=== PATIENT | male | born 1960 | race Caucasian/White ===

== ENCOUNTER 2020-05-02 13:40 | Outpatient (CLI) | payer BC, SELFPAY ==
--- NOTE | 2020-05-02 15:08 | ECG_ITS ---
Measurements Intervals [place] Rate: 66 P: 29 MT: 151 QRS: 24 QRSD: 89 T: 30 QT: 369 QTc: 387 Interpretive Statements SINUS RHYTHM BASELINE ARTIFACT- I, II, III, AVR, AVL, AVF NORMAL ECG Electronically Signed On 05-02-2020 16:33:16 CDT by Daren Amador D.O.
[2020-05-02 15:36] LABS: Basophils Absolute Auto 0.1 K/mm3 (0.0-0.1); Basophils Percent Auto 0.6 % (0.2-1.2); Eosinophils Absolute Auto 0.4 K/mm3 (0-0.3); Eosinophils Percent Auto 4.3 % (0-4.4); Hematocrit 46.9 % (42.0-52.0); Hemoglobin 15.4 g/dL (14.0-18.0); Immature Granulocyte Absolute 0.05 K/mm3 (0.00-0.031); Immature Granulocyte Percent A 0.5 % (0-0.5); Lymphocytes Absolute Auto 3.02 K/mm3 (0.9-3.2); Lymphocytes Percent Auto 30.5 % (18.3-44.2); Mean Corpuscular HGB Conc 32.8 g/dl (32-36); Mean Corpuscular Hemoglobin 30.9 pg (26-34); Mean Platelet Volume 9.8 fl (7.4-10.4); Monocytes Absolute Auto 0.9 K/mm3 (0.1-0.6); Monocytes Percent Auto 8.8 % (2.6-8.5); Neutrophils Absolute Auto 5.5 K/mm3 (1.3-6.7); Neutrophils Percent Auto 55.3 % (45.5-73.1); Platelet Count Result 214 k/mm3 (150-375); Red Blood Count 4.99 M/mm3 (4.6-6.20); Red Cell Distribution Width 13.9 % (11.5-14.5); White Blood Count 9.9 K/mm3 (4.5-10.0)
[2020-05-02 15:41] LABS: Add Urine Microscopic? NO; Appearance Urine Clear (Clear); Bilirubin Urine Negative (Negative); Blood Urine Negative (Negative); Color Urine Yellow (Yellow); Glucose Urine UA Negative (Negative); Ketones Urine Negative (Negative); Leukocyte Esterase Ur Negative LEU/UL (Negative); Mucus Urine Rare /lpf; Nitrate Urine Negative (Negative); Protein Urine Negative (Negative); Specific Grav Ur 1.015 (1.001-1.035); Urobilinogen Urine Negative mg/dL (<2.0); WBC Urine 0-3 /hpf
[2020-05-02 15:43] LABS: Albumin Level 4.1 g/dL (3.5-5.1); Anion Gap 6 mmol/L (8-16); Blood Urea Nitrogen 14 mg/dL (9-20); Calcium 9.1 mg/dL (8.4-10.2); Carbon Dioxide 31 mmol/L (22-30); Chloride 97 mmol/L (98-107); Estimated Glomerular Filt Rate > 60; Glucose 89 mg/dL (75-110); Potassium 4.5 mmol/L (3.4-5.0); Sodium 134 mmol/L (137-145)
[2020-05-02 15:44] LABS: Prothrombin Time 12.4 Seconds (11.1-14.7)
[2020-05-02 15:45] LABS: Partial Thromboplastin Time 26.9 SECONDS (22.3-36.8)
[2020-05-02 15:47] LABS: Urine Cotinine NEGATIVE
[2020-05-02 16:32] LABS: Hemoglobin A1C 5.7 % (<5.7)
== END 2020-05-02 13:41 | disposition home or self-care (01) ==
LOC: ANHSURGERY 13:42
PROVIDERS: PCP Internal Medicine; Visit Provider Orthopaedic Surgery
DX: Z01.818 Encounter for other preprocedural examination (principal); M17.11 Unilateral primary osteoarthritis, right knee
CPT/HCPCS: 80048; 80307; 81003; 82040; 83036; 85025; 85610; 85730; 87081; 93005

== ENCOUNTER 2020-05-18 00:46 | Outpatient (CLI) | payer BC, SELFPAY ==
[2020-05-18 18:37] LABS: SARS-CoV-2 RNA PCR Negative
== END 2020-05-18 00:47 | disposition home or self-care (01) ==
LOC: ANHCOVIDDT 00:46
PROVIDERS: PCP Internal Medicine; Visit Provider Orthopaedic Surgery
DX: Z01.812 Encounter for preprocedural laboratory examination (principal); Z20.828 Contact with and (suspected) exposure to other viral communicable diseases
CPT/HCPCS: 87635; C9803; U0003

== ENCOUNTER 2020-05-21 13:25 | Inpatient (IN) | payer BC, SELFPAY ==
[2020-05-02 14:13] VITALS: BP 131/86; PULSE 69; RESP 18; TEMP 36.8; O2SAT 97; BMI 37.3
[2020-05-21] VITALS (13 sets, daily range): BP systolic 119–151; BP diastolic 69–109; PULSE 68–94; RESP 12–20; TEMP 35.7–37.2; O2SAT 92–100
--- NOTE | ~2020-05-21 | XR_ITS ---
EXAMINATION: XR knee RT 2V DATE: 05/21/2020 12:56 CDT INDICATION: Right total knee arthroplasty TECHNIQUE: 2 views right knee FINDINGS: There is a right total knee arthroplasty in expected position. Subcutaneous gas with fluid and air in the joint and overlying skin yash are consistent with recent surgery. No evidence of p eriprosthetic fracture. IMPRESSION: 1. Recent right total knee arthroplasty. Reviewed, dictated and finalized at location A.
--- NOTE | 2020-05-21 07:24 | WPDHPUPDATE1 ---
History and Physical Update Update Date/Time: 05/21/20 07:24 History and Physical has been reviewed, including an updated exam of the patient. There are NO changes in the patient's condition. Risks, benefits, and alternatives have been discussed and questions answered. Patient agrees to proceed with procedure.
[2020-05-21] MEDS: ACETAMINOPHEN 500 MG TABLET 1000 MG PO (09:46)
--- NOTE | 2020-05-21 09:59 | P.PNAN_ITS ---
Anes - Initial Pre Proc Eval Procedure: Operation Date: 05/21/20 11:30 Proposed Procedures p Right Total Knee Arthroplasty - Ganesh Solis MD Date/Time: 05/21/20 09:59 Surgeon: Ganesh Solis MD Pre Op Diagnosis: Right Knee DJD Patient Data Age: 60 Gender: M Height: 5 ft 10.5 in Weight: 117.8 kg Last Vital Signs Temp 98.2 F 05/02/20 14:13 Pulse 69 05/02/20 14:13 Resp 18 05/02/20 14:13 BP 131/86 05/02/20 14:13 Pulse Ox 97 05/02/20 14:13 Allergies Allergy/AdvReac Type Severity Reaction Status Date / Time No Known Allergies Allergy Verified 05/21/20 09:31 Home Medications Medication Instructions Recorded Confirmed Type amlodipine 10 mg-benazepril 20 mg 1 cap PO DAILY 11/15/19 05/21/20 History capsule chlorhexidine gluconate 4 % 1 applic TOPICAL ONCE #237 ml 04/16/20 05/17/20 Rx topical liquid aspirin [Adult Low Dose Aspirin] 81 mg PO DAILY 05/02/20 05/21/20 History glucosamine-chondroitin 1 tablet PO DAILY 05/02/20 05/21/20 History naproxen sodium [Aleve] 440 mg PO BID 05/02/20 05/21/20 History omega 7-aom-gev-fish oil [Fish Oil] 1 cap PO DAILY 05/02/20 05/21/20 History Patient hx anesthesia problems: none Family hx anesthesia problems: none PMFSH Past Medical History Medical History (Updated 05/17/20 @ 15:50 by LAURA Murdock) Benign essential hypertension Degenerative joint disease of knee Erectile dysfunction Essential pulmonary hypertension On intermediate drug therapy YUSRA (obstructive sleep apnea) Other and unspecified hyperlipidemia Personal history of nicotine dependence Tricompartment degenerative joint disease of knee Social History Social History Smoking packs per day: 0.5 Smoking cigarettes per day: 10.0 Years smoked: 40 Smoking pack-years: 20.00 Smoking status: Former smoker (pt. stated he stopped smoking on 04/16/20) Tobacco type: cigarettes Second hand tobacco smoke exposure: No Smoking end date: 04/16/20 Additional smoking assessment comments: DENIES ANY FORM OF TOBACCO/NICOTINE USE Alcohol intake: current Drinks per week: 10 Alcohol use details: BEER Living arrangements: alone Spiritual care concerns: No Anes - Eval Final PreProcedure Day of Procedure 05/21/20 09:59 Patient weight: obese Heart: regular rate and rhythm Lungs: clear to auscultation Airway: Mallampati scale class III Neurological: alert and oriented Last oral intake: >/= 8 hours ASA classification: III Emergent: no Anesthetic plan: proceed Anesthesia type and monitoring: general LMA (may use ETT if needed) and standard monitoring Informed Consent: The patient's anesthetic plan and its attendant risks and benefits were discussed with the patient/family/POA. Questions were solicited and answers provided to the satisfaction of the patient/family/POA.
[2020-05-21] MEDS: KETOROLAC 15 MG/ML VIAL (*BKC) IV PUSH (10:01)
[2020-05-21] MEDS: TRANEXAMIC ACID 1,000MG/ISO100 1,000 MG/100 ML BAG 200 MG IVPB (10:01)
[2020-05-21] MEDS: LACTATED RINGERS 1,000 ML 30 ML IV CONT ×2 (10:20→12:35)
[2020-05-21] MEDS: ceFAZolin 2 GM/D5W 50 ML 2 GM/50 ML BAG IVPB ×2 (10:21→17:41)
--- NOTE | 2020-05-21 10:23 | WPDANESPNB ---
Anes - Peripheral Nerve Block Date/Time: 05/21/20 10:23 I have discussed with the patient/family/POA the placement of a peripheral nerve block for post-operative pain management, including associated risks, benefits, complications, and side effects. Alternative methods of post-operative analgesia were detailed. Questions were solicited and answers provided to the satisfaction of the patient/family/POA. Time-Out: A pre-procedural Time-Out was completed immediately before starting the procedure and confirmed: Patient Identification, Site, Procedure, Patient Position and the Availability of Requisite Equipment. Clinical Indications: Acute post-operative pain management requested by the operative surgeon. Nerve Block Insertion Note Anes-nerve block: femoral right Patient position: supine Skin prep: chlorhexidine Needle: 22 gauge, stimulating, insulated echogenic needle. Needle length: 50 mm Technique: nerve stimulation lost at (mA) Technique comment: mid2mg [id number] Injectate: bupivacaine 0.25% with epi 5 mcg/ml (30ml) Observations: tolerated well Complications: none Procedure start time:: 1010 Procedure end time:: 1013
--- NOTE | 2020-05-21 12:32 | PM.PROC ---
Procedure Note - Detailed Date of procedure: 05/21/20 Pre-op diagnosis: Right Knee DJD Post-op diagnosis: same Procedure performed: R TKA Description of procedure: THE RIGHT KNEE WAS PREPPED AND DRAPED IN THE STERILE FASHION. A MIDLINE SKIN INCISION WAS MADE. A MEDIAL PARAPATELLAR ARTHROTOMY WAS MADE. THE PATELLA WAS EVERTED. THERE WAS TRICOMPARTMENT DJD. THERE WAS MINIMAL PATELLA DJD. AN INTRAMEDULLARY LAUREN WAS PLACED IN THE FEMUR. A DISTAL FEMORAL CUT WAS MADE IN 5 DEGREES OF VALGUS REMOVING APPROXIMATELY 9 MM OF BONE FROM THE DISTAL FEMUR. THE FEMUR WAS SIZED TO 67.5. A 67.5 FEMORAL CUTTING BLOCK WAS PLACED IN 3 DEGREES OF EXTERNAL ROTATION AND IN ALIGNMENT WITH MICHEAL'S LINE AND THE TRANSEPICONDYLAR AXIS. ANTERIOR POSTERIOR AND CHAMFER CUTS WERE MADE. THE CUTS WERE EXCELLENT. NEXT AN INTRAMEDULLARY CUTTING GUIDE WAS PLACED IN THE TIBIA. A TRANS TIBIAL CUT WAS MADE ALONG THE LONG AXIS OF THE TIBIA. APPROXIMATELY 10 MM OF BONE WAS REMOVED FROM THE HIGH SIDE OF THE TIBIA. THE TIBIA WAS THEN PLANED TO A SMOOTH SURFACE. POSTERIOR FEMORAL OSTEOPHYTES WERE REMOVED FROM THE FEMORAL CONDYLES. A 75 TIBIAL TRIAL WAS PLACED IN ALIGNMENT WITH THE 1/3 MEDIAL ASPECT OF THE TIBIAL TUBERCLE. THEN A 67.5 FEMORAL TRIAL COMPONENT WAS PLACED. BOTH HAD EXCELLENT FITS. EVENTUALLY A 11 MM POLYETHYLENE TRIAL COMPONENT WAS PLACED. THE KNEE WAS TAKEN THROUGH A RANGE OF MOTION. THE KNEE CAME OUT TO FULL EXTENSION. THERE WAS NO ABNORMAL TILT TO THE PATELLA. THERE WAS GOOD A/P AND VARUS/VALGUS STABILITY. THERE WAS NO EXCESSIVE ROLL BACK WITH FLEXION. THE TRIAL COMPONENTS WERE REMOVED. THEN A 67.5 FEMORAL COMPONENT AND 75 TIBIAL COMPONENT WITH A 11 CR POLYETHYLENE COMPONENT WERE CEMENTED INTO PLACE. THE IMPLANTS WERE FLUSH WITH THE CUT BONE SURFACES. THE KNEE WAS TAKEN THROUGH A ROM AGAIN AND FOUND TO BE STABLE WITH NO PATELLA TILT NO EXCESSIVE ROLL BACK WITH FLEXION AND GOOD STABILITY WITH COMPLETE AND FULL EXTENSION. THE KNEE WAS IRRIGATED WITH STERILE BETADINE AND WATER FOR ABOUT 3 MINUTES. THE BLEEDERS WERE CAUTERIZED. THE ARTHROTOMY WAS REPAIRED WITH NUMBER 1 VICRYL. THE SUB CUTANEOUS LAYER WITH 2-0 VICRYL AND THE SKIN WITH MAEVE. THE WOUND WAS WASHED AND A STERILE DRESSING WAS APPLIED. PATIENT WAS EXTUBATED. Anesthesia: GETA Surgeon: Ganesh Solis MD Estimated blood loss (mL): 150 Drains: No Complications: No immediate complications Condition: stable Disposition: PACU
--- NOTE | 2020-05-21 13:33 | PC.NURSE ---
This patient, Miguel Coyle, was admitted to 2 Medical Room 240-. Patient/family oriented to hospital policies and general routines including ID bracelet, bed and alarms, visiting hours, pain management, procedures, bathroom and other care routines, personal items, smoking policy, room service/diet, and visiting hours. Valuables list has been completed. Information on how to activate the Rapid Response Team has been discussed. Patient/Family are encouraged to report perceived risks to care and to ask questions if they do not understand what they are told or what they should do.
[2020-05-21 13:57] LABS: Estimated CRCL calculation 72 ml/min; Estimated Glomerular Filt Rate 57
[2020-05-21] MEDS: HYDROcodone/acetaminophen (*CRX) 5-325 MG TABLET 1 TAB PO ×2 (14:25→20:16)
[2020-05-21] MEDS: SODIUM CHLORIDE 0.9% IV 1,000 ML 125 ML IV CONT (14:25)
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
[2020-05-21] MEDS: DOCUSATE SODIUM 100 MG CAPSULE PO (17:41)
[2020-05-21] MEDS: CELECOXIB 200 MG CAPSULE PO (17:42)
[2020-05-22] VITALS (8 sets, daily range): BP systolic 118–133; BP diastolic 75–81; PULSE 85–99; RESP 16–22; TEMP 37.1–37.3; O2SAT 91–99
[2020-05-22] MEDS: HYDROcodone/acetaminophen (*CRX) 5-325 MG TABLET 1 TAB PO ×2 (02:01→06:15)
[2020-05-22] MEDS: ceFAZolin 2 GM/D5W 50 ML 2 GM/50 ML BAG IVPB ×2 (02:01→10:30)
[2020-05-22 04:52] LABS: Basophils Percent Auto 0.1 % (0.2-1.2); Hematocrit 37.6 % (42.0-52.0); Hemoglobin 12.6 g/dL (14.0-18.0); Immature Granulocyte Absolute 0.16 K/mm3 (0.00-0.031); Immature Granulocyte Percent A 0.9 % (0-0.5); Lymphocytes Percent Auto 7.5 % (18.3-44.2); Mean Corpuscular HGB Conc 33.5 g/dl (32-36); Mean Corpuscular Hemoglobin 31.3 pg (26-34); Mean Corpuscular Volume 93.5 fl (80-100); Mean Platelet Volume 9.9 fl (7.4-10.4); Monocytes Absolute Auto 1.2 K/mm3 (0.1-0.6); Monocytes Percent Auto 6.2 % (2.6-8.5); Neutrophils Percent Auto 85.3 % (45.5-73.1); Platelet Count Result 198 k/mm3 (150-375); Red Blood Count 4.02 M/mm3 (4.6-6.20); Red Cell Distribution Width 13.2 % (11.5-14.5); White Blood Count 18.8 K/mm3 (4.5-10.0)
[2020-05-22 05:07] LABS: Alanine Aminotransferase 26 U/L (4-50); Albumin Level 3.6 g/dL (3.5-5.1); Alkaline Phosphatase 63 U/L (38-126); Anion Gap 5 mmol/L (8-16); Aspartate Amino Transferase 26 U/L (17-59); Bilirubin,Total 0.3 mg/dL (0.2-1.3); Blood Urea Nitrogen 21 mg/dL (9-20); Calcium 8.3 mg/dL (8.4-10.2); Carbon Dioxide 27 mmol/L (22-30); Chloride 99 mmol/L (98-107); Estimated CRCL calculation 92 ml/min; Estimated Glomerular Filt Rate > 60; Glucose 124 mg/dL (75-110); Potassium 4.4 mmol/L (3.4-5.0); Sodium 131 mmol/L (137-145)
[2020-05-22] MEDS: CELECOXIB 200 MG CAPSULE PO ×2 (08:42→17:24)
[2020-05-22] MEDS: amLODIPine BESYLATE 5 MG TABLET 10 MG PO (08:43)
[2020-05-22] MEDS: ASPIRIN 325 MG ENTERIC TABLET 650 MG PO (08:43)
[2020-05-22] MEDS: DOCUSATE SODIUM 100 MG CAPSULE PO ×2 (08:43→17:24)
[2020-05-22] MEDS: lisinopriL 20 MG TABLET PO (08:43)
[2020-05-22] MEDS: MORPHINE SULFATE (*CRX) 4 MG/ML INJ IV PUSH ×4 (10:29→18:05)
--- NOTE | 2020-05-22 11:33 | PM.IMPN ---
Progress Note: A&P Assessment and Plan (1) Degenerative joint disease of right knee: Code(s): M17.11 - Unilateral primary osteoarthritis, right knee Status: Acute Assessment and Plan: 05/22/20 11:33 Patient is a 60-year-old male moderately obese with history of hypertension obstructive sleep apnea for which patient uses CPAP, and degenerative joint disease patient had been seen orthopedic surgeon for worsening pain in his right knee conservative management failed and patient was taken to OR on 05/21 and today is postop day 1. , patient states the pain in the knees persisting, he was able to participate in physical therapy and currently working with OT. patient denies any complaint of chest pain, shortness of breath, palpitation fever or chills, patient is clinically stable and will be seen by orthopedic and further recommendation to follow. (2) Obstructive sleep apnea on CPAP: Code(s): G47.33 - Obstructive sleep apnea (adult) (pediatric); Z99.89 - Dependence on other enabling machines and devices Status: Acute Assessment and Plan: patient uses CPAP he may need repeat sleep study to adjust setting (3) Essential hypertension: Code(s): I10 - Essential (primary) hypertension Status: Acute Assessment and Plan: will continue home medication and monitor Additional Plan The hospitalist service has been consulted for management of his medical conditions postoperatively. Wound care and pain control will be deferred to Dr. Solis as well as DVT prophylaxis. Agree with early ambulation and physical therapy. Subjective Date/time seen: 05/22/20 11:33 Patient is a 60-year-old male moderately obese with history of hypertension obstructive sleep apnea for which patient uses CPAP, and degenerative joint disease patient had been seen orthopedic surgeon for worsening pain in his right knee conservative management failed and patient was taken to OR on 05/21 and today is postop day 1. , patient states the pain in the knees persisting, he was able to participate in physical therapy and currently working with OT. patient denies any complaint of chest pain, shortness of breath, palpitation fever or chills, patient is clinically stable and will be seen by orthopedic and further recommendation to follow. Review of Systems Review of Systems: All systems reviewed & are unremarkable except as noted in HPI and below Exam Narrative: Exam Narrative: moderately obese Const: General: comfortable and no acute distress HENMT: General nose exam: Normal nares present Eyes: General: appearance normal, both eyes and all related structures Sclera: sclerae normal Neck: Neck: supple Resp: Effort & Inspection: normal respiratory effort Auscultation: clear to auscultation bilaterally Cardio: Rate: regular rate Rhythm: regular rhythm GI: Auscultation: normal bowel sounds Other: obese Skin: General skin exam: normal color Neuro: Speech: normal speech Sensory Exam: normal sensation Extrem: General: normal to inspection Other: right knee in wound dressing Psych: Affect: Anxious affect present Objective Data Vital Signs Vital Signs: Vital Signs - 24 hr 05/21/20 12:35 05/21/20 12:45 05/21/20 13:00 Temperature 97.5 F L Pulse Rate 92 81 85 Respiratory Rate 12 12 12 Blood Pressure 134/87 143/89 H 139/75 Pulse Oximetry 100 98 92 05/21/20 13:15 05/21/20 13:23 05/21/20 13:50 Temperature 96.3 F L Pulse Rate 74 77 72 Respiratory Rate 12 16 20 Blood Pressure 130/84 130/87 125/83 Pulse Oximetry 97 100 97 05/21/20 14:05 05/21/20 14:35 05/21/20 15:35 Temperature 96.6 F L 96.7 F L 97.0 F L Pulse Rate 70 82 93 Respiratory Rate 18 20 18 Blood Pressure 151/109 H 135/97 H 124/86 Pulse Oximetry 97 97 96 05/21/20 19:10 05/21/20 20:30 05/21/20 23:10 Temperature 98.6 F 98.9 F Pulse Rate 93 94 89 Respiratory Rate 20 16 Blood Pressure 119/69 131/73 Pulse Oximetry 96 9
--- NOTE | 2020-05-22 12:31 | PCOTNOTE ---
On 05/22/20, the student, Carlotta Baez, provided care and completed [facility] documentation on this patient. I have reviewed the student's documentation and agree with the findings.
--- NOTE | 2020-05-22 13:34 | WPDANESPN ---
Anes - Prog Note Post-Op Date/Time: 05/22/20 13:34 Cardiovascular status: normal Respiratory status: normal Airway patency: baseline Mental status: baseline Post-Op hydration status: normal Vital Signs: Last Vital Signs Temp 37.3 C 05/22/20 09:00 Pulse 99 05/22/20 09:00 Resp 18 05/22/20 09:00 BP 118/75 05/22/20 09:00 Pulse Ox 99 05/22/20 09:00 Pain Score (VAS): 0/10. Patient resting in bed at time of assessment, appears comfortable. No additional concerns or issues voiced by patient at time of assessment. I/O: Intake & Output 05/21/20 05/22/20 05/22/20 23:59 07:59 15:59 Intake Total 840 350 240 Output Total 300 600 Balance 540 -250 240 Laboratory Tests 05/22/20 04:45 05/22/20 04:45 05/21/20 05/22/20 05/22/20 13:42 04:45 04:45 WBC 18.8 H RBC 4.02 L Hgb 12.6 L Hct 37.6 L MCV 93.5 MCH 31.3 MCHC 33.5 RDW 13.2 Plt Count 198 MPV 9.9 Immature Gran % (Auto) 0.9 H Neut % (Auto) 85.3 H Lymph % (Auto) 7.5 L Reeves % (Auto) 6.2 Eos % (Auto) 0.0 Baso % (Auto) 0.1 L Lymph # (Auto) 1.40 Reeves # (Auto) 1.2 H Eos # (Auto) 0.0 Baso # (Auto) 0.0 Abs Immat Gran (auto) 0.16 H Absolute Neuts (auto) 16.0 H Absolute Nucleated RBC 0.0 Nucleated RBC % 0.0 Sodium 131 L Potassium 4.4 Chloride 99 Carbon Dioxide 27 Anion Gap 5 L BUN 21 H Creatinine 1.30 1.00 Estim Creat Clear Calc 72 92 Estimated GFR 57 L > 60 Glucose 124 H Calcium 8.3 L Total Bilirubin 0.3 Direct Bilirubin 0.0 AST 26 ALT 26 Alkaline Phosphatase 63 Total Protein 6.0 L Albumin 3.6 Post-procedural complaints: none Patient Feedback: Patient satisfied with anesthetic care.
--- NOTE | 2020-05-22 18:05 | PM.PNORT ---
Progress Note: A&P Additional Plan POD 1 DOING WELL. WILL NEED MORE PT. PLAN DC IN MORNING Subjective Subjective Date/Time Seen: 05/22/20 18:05POD 1 DOING WELL. PAIN CONTROL IS DIFFICULT. NO CP OR SOB NO CALF PAIN Exam Extrem: Other: VSS AFEBRILE DRESSING DRY NV INTACT NEG HOMANS SIGN,M CALF SOFT NON TENDER Objective Data Vital Signs Vital Signs: Vital Signs - 24 hr 05/21/20 19:10 05/21/20 20:30 05/21/20 23:10 Temperature 37.0 C 37.2 C Pulse Rate 93 94 89 Respiratory Rate 20 16 Blood Pressure 119/69 131/73 Pulse Oximetry 96 94 94 05/22/20 00:07 05/22/20 03:10 05/22/20 05:12 Temperature 37.1 C Pulse Rate 91 86 89 Respiratory Rate 16 Blood Pressure 129/80 Pulse Oximetry 94 91 95 05/22/20 08:54 05/22/20 09:00 05/22/20 14:00 Temperature 37.3 C 37.2 C Pulse Rate 99 85 Respiratory Rate 18 21 H Blood Pressure 118/75 133/75 Pulse Oximetry 99 99 94 Intake/Output Intake/Output: Intake & Output 05/19/20 05/20/20 05/21/20 05/22/20 23:59 23:59 23:59 23:59 Intake Total 1380 880 Output Total 300 600 Balance 1080 280 Meds/Results Medications: Active Medications Generic Name Dose Route Start Last Admin Trade Name Freq PRN Reason Stop Dose Admin Acetaminophen 1,000 mg 05/21/20 13:25 Tylenol Tablet PO Q6H PRN Mild Pain (1-3) Hydrocodone Bitart/Acetaminophen 1 tab 05/21/20 13:25 05/22/20 06:15 [place] 5-325 Mg PO 1 tab Q4H PRN Administration Moderate Pain (4-6) Amlodipine Besylate 10 mg 05/22/20 09:00 05/22/20 08:43 Norvasc PO 10 mg DAILY PILY Administration Aspirin 650 mg 05/22/20 09:00 05/22/20 08:43 Aspirin Ec PO 650 mg DAILY PILY Administration Celecoxib 200 mg 05/21/20 17:00 05/22/20 17:24 Celebrex PO 200 mg BIDWM PILY Administration Diazepam 5 mg 05/21/20 13:25 Valium Po PO Q8H PRN Spasms Diphenhydramine HCl 25 mg 05/21/20 13:25 Benadryl Inj IV PUSH Q6H PRN Itching Docusate Sodium 100 mg 05/21/20 17:00 05/22/20 17:24 Colace Capsule PO 100 mg BID PILY Administration Lisinopril 20 mg 05/22/20 09:00 05/22/20 08:43 Prinivil PO 20 mg QAM PILY Administration Morphine Sulfate 4 mg 05/21/20 13:25 05/22/20 16:04 Morphine Sulfate Inj (*Crx) IV PUSH 4 mg Q2H PRN Administration Breakthrough pain rated 7-10 Naloxone HCl 0.1 mg 05/21/20 13:25 Narcan IV PUSH Q2M PRN Opiate Reversal Ondansetron HCl 4 mg 05/21/20 13:25 Zofran Inj IV PUSH Q4H PRN Nausea And Vomiting Radiology Results: ITS Impressions Knee X-Ray 05/21/20 12:56 IMPRESSION: 1. Recent right total knee arthroplasty. Labs Labs: Laboratory Results - last 24 hr 05/22/20 05/22/20 04:45 04:45 WBC 18.8 H RBC 4.02 L Hgb 12.6 L Hct 37.6 L MCV 93.5 MCH 31.3 MCHC 33.5 RDW 13.2 Plt Count 198 MPV 9.9 Immature Gran % (Auto) 0.9 H Neut % (Auto) 85.3 H Lymph % (Auto) 7.5 L Jones % (Auto) 6.2 Eos % (Auto) 0.0 Baso % (Auto) 0.1 L Lymph # (Auto) 1.40 Jones # (Auto) 1.2 H Eos # (Auto) 0.0 Baso # (Auto) 0.0 Abs Immat Gran (auto) 0.16 H Absolute Neuts (auto) 16.0 H Absolute Nucleated RBC 0.0 Nucleated RBC % 0.0 Sodium 131 L Potassium 4.4 Chloride 99 Carbon Dioxide 27 Anion Gap 5 L BUN 21 H Creatinine 1.00 Estim Creat Clear Calc 92 Estimated GFR > 60 Glucose 124 H Calcium 8.3 L Total Bilirubin 0.3 Direct Bilirubin 0.0 AST 26 ALT 26 Alkaline Phosphatase 63 Total Protein 6.0 L Albumin 3.6
--- NOTE | 2020-05-22 19:02 | PHAR ---
Home medication identified. Glucosamine/Chondroitin Triple Strength Osteo Biflex
[2020-05-23 00:06] VITALS: TEMP 36.8
[2020-05-23 01:53] VITALS: PULSE 86; O2SAT 95
[2020-05-23 05:43] LABS: Hematocrit 34.4 % (42.0-52.0); Hemoglobin 11.5 g/dL (14.0-18.0); Mean Corpuscular HGB Conc 33.4 g/dl (32-36); Mean Corpuscular Hemoglobin 31.9 pg (26-34); Mean Corpuscular Volume 95.3 fl (80-100); Mean Platelet Volume 10.5 fl (7.4-10.4); Platelet Count Result 171 k/mm3 (150-375); Red Blood Count 3.61 M/mm3 (4.6-6.20); Red Cell Distribution Width 13.6 % (11.5-14.5); White Blood Count 9.3 K/mm3 (4.5-10.0)
[2020-05-23 06:00] VITALS: BP 121/72; PULSE 78; RESP 22; TEMP 37.3; O2SAT 95
[2020-05-23 06:01] LABS: Anion Gap 4 mmol/L (8-16); Blood Urea Nitrogen 27 mg/dL (9-20); Calcium 7.5 mg/dL (8.4-10.2); Carbon Dioxide 29 mmol/L (22-30); Chloride 97 mmol/L (98-107); Estimated CRCL calculation 92 ml/min; Estimated Glomerular Filt Rate > 60; Glucose 100 mg/dL (75-110); Sodium 130 mmol/L (137-145)
[2020-05-23] MEDS: ASPIRIN 325 MG ENTERIC TABLET 650 MG PO (07:52)
[2020-05-23] MEDS: amLODIPine BESYLATE 5 MG TABLET 10 MG PO (07:52)
[2020-05-23] MEDS: CELECOXIB 200 MG CAPSULE PO ×2 (07:52→16:08)
[2020-05-23] MEDS: lisinopriL 20 MG TABLET PO (07:52)
[2020-05-23] MEDS: DOCUSATE SODIUM 100 MG CAPSULE PO ×2 (07:57→16:08)
[2020-05-23] MEDS: HYDROcodone/acetaminophen (*CRX) 5-325 MG TABLET 1 TAB PO ×2 (07:57→16:08)
[2020-05-23 09:39] VITALS: BP 93/57; PULSE 78; RESP 20; TEMP 36.7; O2SAT 95
[2020-05-23] MEDS: MORPHINE SULFATE (*CRX) 4 MG/ML INJ IV PUSH (10:38)
--- NOTE | 2020-05-23 12:15 | PM.PNORT ---
Progress Note: A&P Assessment and Plan (1) History of total knee arthroplasty: Qualifiers: Laterality: right Qualified Code(s): Z96.651 - Presence of right artificial knee joint Code(s): Z96.659 - Presence of unspecified artificial knee joint Status: Acute Assessment and Plan: POD #2: Right TKA Continue PT/OT. WBAT. High Fall Risk. Continue pain control. Ice Knee. No pillows under knee. Continue DVT prophylaxis with Aspirin. Reviewed SCDs/Incentive Spirometry. Dispo: Home with Home Health pending progress with PT/OT lexii today. Subjective Subjective Date/Time Seen: 05/23/20 12:15 Post Op day: 2 Principal diagnosis: Right TKA Interval history: POD #2: RIGHT TKA Pain well controlled. Working well with PT/OT. Review of Systems Constitutional: Constitutional: Reports as per HPI, Denies chills, Denies fatigue, Denies night sweats and Reports weakness (weakness with dorsiflexion ) Cardiovascular: Cardiovascular: Reports as per HPI, Denies chest pain, Reports leg edema (RLE ) and Denies lightheadedness Respiratory: Respiratory: Reports no additional respiratory complaints Gastrointestinal: Gastrointestinal: Reports no additional gastrointestinal complaints, Denies diarrhea, Denies nausea and Denies vomiting Genitourinary: Genitourinary: Denies dysuria and Denies urinary frequency Musculoskeletal: Musculoskeletal: Reports arthralgias (Right Knee Pain ) and Reports joint swelling (Right Knee Pain ) Exam Const: General: comfortable and no acute distress Resp: Effort & Inspection: normal respiratory effort Cardio: Rate: regular rate Rhythm: regular rhythm GI: Inspection: non-distended Auscultation: bowels sounds not normal Skin: General skin exam: normal color Other: dressing c/d/i Neuro: General: gait normal (antalgic right knee ) Cognition (Neuro): normal cognition Sensory Exam: normal sensation (dorsal foot with decreased sensaiton ) Extrem: Right lower extremity: knee Details: tenderness (diffuse ), swelling (moderate ) and abnormal ROM (limited due to recent surgical intervention ) Details: able to extend lower leg actively, lower leg (negative jeovanny's sign ) Details: normal to inspection and localized swelling (generalized swelling ), ankle (weakness with dorsiflexion/eversion of the right foot ) Details: other (swelling ); no tenderness and no swelling and foot (2+ pedal pulses. ) Details: vascular exam Details: dorsalis pedis pulse present and motor-sensory exam Details: light-touch abnormal (decreased sensation dorsal midfoot ) Left lower extremity: normal to inspection, full ROM and normal capillary refill Other: weakness with dorsiflexion/eversion. Objective Data Vital Signs Vital Signs: Vital Signs - 24 hr 05/22/20 14:00 05/22/20 20:00 05/22/20 20:35 Temperature 37.2 C 37.2 C Pulse Rate 85 86 87 Respiratory Rate 21 H 22 H Blood Pressure 133/75 125/81 Pulse Oximetry 94 92 94 05/23/20 00:06 05/23/20 01:53 05/23/20 06:00 Temperature 36.8 C 37.3 C Pulse Rate 86 78 Respiratory Rate 22 H Blood Pressure 121/72 Pulse Oximetry 95 95 05/23/20 09:39 Temperature 36.7 C Pulse Rate 78 Respiratory Rate 20 Blood Pressure 93/57 L Pulse Oximetry 95 Intake/Output Intake/Output: Intake & Output 05/20/20 05/21/20 05/22/20 05/23/20 23:59 23:59 23:59 23:59 Intake Total 1380 980 800 Output Total 300 600 650 Balance 1080 380 150 Meds/Results Medications: Active Medications Generic Name Dose Route Start Last Admin Trade Name Freq PRN Reason Stop Dose Admin Acetaminophen 1,000 mg 05/21/20 13:25 Tylenol Tablet PO Q6H PRN Mild Pain (1-3) Hydrocodone Bitart/Acetaminophen 1 tab 05/21/20 13:25 05/23/20 07:57 [place] 5-325 Mg PO 1 tab Q4H PRN Administration Moderate Pain (4-6) Amlodipine Besylate 10 mg 05/22/20 09:00 05/23/20 07:52 Norvasc PO 10 mg DAILY PILY Administration Aspirin 650 mg
--- NOTE | 2020-05-23 12:26 | PM.IMPN ---
Progress Note: A&P Assessment and Plan (1) Degenerative joint disease of right knee: Code(s): M17.11 - Unilateral primary osteoarthritis, right knee Status: Acute Assessment and Plan: 05/23/20 12:26 Patient is a 60-year-old male moderately obese with history of hypertension obstructive sleep apnea for which patient uses CPAP, and degenerative joint disease patient had been seen orthopedic surgeon for worsening pain in his right knee conservative management failed and patient was taken to OR on 05/21 and today 05/23 patient states the pain in the knees persisting, he is able to participate in physical therapy and currently working with PT and ambulating in the room, stats pain is improving. patient denies any complaint of chest pain, shortness of breath, palpitation fever or chills, patient is clinically stable and will be seen by orthopedic and further recommendation to follow. 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 to have a repeat sleep study, (2) Obstructive sleep apnea on CPAP: Code(s): G47.33 - Obstructive sleep apnea (adult) (pediatric); Z99.89 - Dependence on other enabling machines and devices Status: Acute Assessment and Plan: patient uses CPAP he may need repeat sleep study to adjust setting (3) Essential hypertension: Code(s): I10 - Essential (primary) hypertension Status: Acute Assessment and Plan: will continue home medication and monitor Subjective Date/time seen: 05/23/20 12:26 Patient is a 60-year-old male moderately obese with history of hypertension obstructive sleep apnea for which patient uses CPAP, and degenerative joint disease patient had been seen orthopedic surgeon for worsening pain in his right knee conservative management failed and patient was taken to OR on 05/21 and today 05/23 patient states the pain in the knees persisting, he is able to participate in physical therapy and currently working with PT and ambulating in the room, stats pain is improving. patient denies any complaint of chest pain, shortness of breath, palpitation fever or chills, patient is clinically stable and will be seen by orthopedic and further recommendation to follow. 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 to have a repeat sleep study, Review of Systems Review of Systems: All systems reviewed & are unremarkable except as noted in HPI and below Exam Narrative: Exam Narrative: moderately obese Const: General: comfortable and no acute distress HENMT: General nose exam: Normal nares present Eyes: General: appearance normal, both eyes and all related structures Sclera: sclerae normal Neck: Neck: supple Resp: Effort & Inspection: normal respiratory effort Auscultation: clear to auscultation bilaterally Cardio: Rate: regular rate Rhythm: regular rhythm GI: Auscultation: normal bowel sounds Other: obese Skin: General skin exam: normal color Neuro: Speech: normal speech Sensory Exam: normal sensation Extrem: General: normal to inspection Other: right knee in wound dressing Psych: Affect: Anxious affect present Objective Data Vital Signs Vital Signs: Vital Signs - 24 hr 05/22/20 14:00 05/22/20 20:00 05/22/20 20:35 Temperature 99 F 99 F Pulse Rate 85 86 87 Respiratory Rate 21 H 22 H Blood Pressure 133/75 125/81 Pulse Oximetry 94 92 94 05/23/20 00:06 05/23/20 01:53 05/23/20 06:00 Temperature 98.3 F 99.2 F Pulse Rate 86 78 Respiratory Rate 22 H Blood Pressure 121/72 Pulse Oximetry 95 95 05/23/20 09:39 Temperature 98.1 F Pulse Rate 78 Respiratory Rate 20 Blood Pressure 93/57 L Pulse Oximetry 95 Intake/Output Intake/Output: Intake & Output 05/20/20 05/21/20 05/22/20 05/23/20 23:59 23:59 23:59 23:59 Intake Total 1380 980 800 Output Total 300 600 650 Balance 1080 380 150 Meds/Results Medications: Active Medications
[2020-05-23 14:17] VITALS: BP 129/76; PULSE 75; RESP 18; TEMP 36.6; O2SAT 95
--- NOTE | 2020-05-31 15:18 | PM.DS ---
DS: Admitting Diagnosis Admitting Diagnosis Admitting Diagnosis: Right Knee DJD DS: Discharge Diagnosis Discharge Diagnosis (1) History of total knee arthroplasty: Qualifiers: Laterality: right Qualified Code(s): Z96.651 - Presence of right artificial knee joint Code(s): Z96.659 - Presence of unspecified artificial knee joint Status: Acute Assessment and Plan: POD #2: Right TKA Continue PT/OT. WBAT. High Fall Risk. Continue pain control. Ice Knee. No pillows under knee. Continue DVT prophylaxis with Aspirin. Reviewed SCDs/Incentive Spirometry. Dispo: Home with Home Health pending progress with PT/OT jose raulley today. DS: Summary Hospital Course Reason for hospitalization: RIGHT TKA Hospital Course: ADMITTED S/P RIGHT TKA FOR POSTOPERATIVE MEDICAL MANAGEMENT, PAIN CONTROL AND PT/OT. PROGRESSED WELL. DISCHARGED HOME WITH HOME HEALTH Status at Discharge Functional status at discharge: uses cane/walker Overall status at discharge: patient is progressing back to baseline Time Spent with Patient Time attestation: Total time spent providing and/or coordinating discharge services: Exam Const: General: comfortable and no acute distress Resp: Effort & Inspection: normal respiratory effort Cardio: Rate: regular rate Rhythm: regular rhythm GI: Inspection: non-distended Auscultation: bowels sounds not normal Skin: General skin exam: normal color Other: dressing c/d/i Neuro: General: gait normal (antalgic right knee ) Cognition (Neuro): normal cognition Sensory Exam: normal sensation (dorsal foot with decreased sensaiton ) Extrem: Right lower extremity: knee Details: tenderness (diffuse ), swelling (moderate ) and abnormal ROM (limited due to recent surgical intervention ), lower leg (negative jeovanny's sign ) Details: normal to inspection and localized swelling (generalized swelling ), ankle (weakness with dorsiflexion/eversion of the right foot ) Details: other (swelling ); no tenderness and no swelling and foot (2+ pedal pulses. ) Details: vascular exam Details: dorsalis pedis pulse present and motor-sensory exam Details: light-touch abnormal (decreased sensation dorsal midfoot ) Left lower extremity: normal to inspection, full ROM and normal capillary refill Other: weakness with dorsiflexion/eversion. Discharge Plan Discharge Attending physician on discharge: Ganesh Solis Consulting providers: Peyman Valdes ; Simin West ; Gigi Gifford ; Ebenezer Velasquez ; Debby Prince Discharging Clinician: Debby Prince Anticipated Discharge Date/Time: 05/23/20 15:00 Patient Disposition: Home Health Service Activity: may shower, no driving and follow weight bearing status Diet: as tolerated Wound Care Instructions: follow printed instructions Discharge Instructions: Per Care Coordination. Patient to have [facility] [phone] for RN/ PT/OT eval and treat. They will contact patient to setup first appointment. Post Op Total Knee Replacement Instructions Dr. Ganesh Solis ?Your dressing will be changed prior to your discharge. You will be sent home with one additional dressing to be changed in 5 days by the home health RN. Your yash will be removed on the 14th day after surgery and steri-strips will be placed. ?You may shower with your dressing but do not submerge in a bath tub. ?Do not drive or operate machinery until you are released by Dr. Solis. ?Do not walk without a walker for any reason until you are released by Dr. Solis. ?Continue to use your ice machine. Please use a towel or pillow case to protect your skin before applying your ice machine. ?Do NOT place a pillow under your knee. You may use a pillow from the calf down if needed. ?You may begin use of your CPM machine at home if you have been given one pre-operatively. DO NOT USE WHILE YOU ARE SLEEPING. ?Your follow up appointment is indicated in your discharge instructions. ?Your me
== END 2020-05-23 17:32 | disposition home health service (06) | DRG 470 ==
LOC: ANH2MED 13:52
PROVIDERS: Family Medicine; Admitting Provider Orthopaedic Surgery; PCP Internal Medicine; Visit Provider Orthopaedic Surgery
PROC: 0SRC0J9 Replacement of Right Knee Joint with Synthetic Substitute, Cemented, Open Approach (ICD-10-PCS; CPT 27447; principal; 2020-05-21 11:30)
DX: M17.11 Unilateral primary osteoarthritis, right knee (principal); I10 Essential (primary) hypertension; I27.20 Pulmonary hypertension, unspecified; G47.33 Obstructive sleep apnea (adult) (pediatric); R09.02 Hypoxemia; E78.5 Hyperlipidemia, unspecified; E66.9 Obesity, unspecified; Z68.36 Body mass index [BMI] 36.0-36.9, adult; Z87.891 Personal history of nicotine dependence
CPT/HCPCS: 36415; 73560; 80048; 80076; 82565; 85025; 85027; 86850; 86900; 86901; 87040; 97110; 97116; 97161; 97165; 97530; 97535; A9270; C1713; C1776; J0131; J0171; J0690; J1100; J1885; J2250; J2270; J2370; J2405; J2704; J2795; J3010; J7030; J7120

== ENCOUNTER 2020-06-26 06:35 | Outpatient (CLI) | payer BC, SELFPAY ==
--- NOTE | ~2020-06-26 | CT_ITS ---
EXAMINATION: CTA chest PE protocol DATE: 06/26/2020 07:33 INDICATION: Shortness of breath. Past smoker. TECHNIQUE: Computed tomography angiography (CTA) of the chest was performed with 160 mL (2 injections , 2 sets of images) Omnipaque-350 intravenous contrast timed to evaluate the pulmonary arteries. Benito nal maximum intensity projection 3D-reconstructions were created by the technologist. Automated expos ure control and iterative reconstruction technique were employed. Exam dose: 1918.22 mGy-cm total ex am DLP. COMPARISON: 08/25/2017 CT chest high resolution scan FINDINGS: There is diagnostic contrast enhancement of the pulmonary arteries and no evidence of pulmo nary embolism. No thoracic aortic aneurysm or dissection. There is old pulmonary granulomatous disease. No hilar or mediastinal mass lesion or lymphadenopathy. Normal heart size. No pericardial or pleural effusion. No pulmonary infiltrate or consolidation or pulmonary mass lesion is detected. Normal morphology of the adrenal glands. Diffuse idiopathic skeletal hyperostosis of the thoracic spine. Prominent degenerative disc disease o f the lower included cervical spine. IMPRESSION: No evidence of pulmonary embolism Reviewed, dictated and finalized at [facility]. Reviewed, dictated and finalized at [facility].
== END 2020-06-26 06:36 | disposition home or self-care (01) ==
PROVIDERS: PCP Internal Medicine; Visit Provider Internal Medicine
DX: R06.02 Shortness of breath (principal)
CPT/HCPCS: 71275; Q9967

== ENCOUNTER 2020-07-09 12:28 | Outpatient (CLI) | payer BC, SELFPAY ==
--- NOTE | 2020-07-09 12:41 | ECHO_ITS ---
Patient Info Name: Miguel Coyle Age: 60 years : 1960 Gender: Male Ht: 71 in Wt: 260 lbs BSA: 2.47 m2 HR: 78 bpm BP: 127 / 85 mmHg Heart Rhythm: Sinus Rhythm Technical Quality: Good Exam Date: 07/09/2020 1:15 PM Exam Location: [facility] Patient Status: Outpatient Admit Date: 07/09/2020 Staff Ordering Physician: Ramone Blanco DO Senior Account Representative: Jericho Heredia RDCS, RT Attending Provider: Ramone Blanco DO Referring Physician: Bella PIPER; Exam Type: CA echo doppler color flow Study Info Indications R06.02 - Shortness of breath Complete two-dimensional, color flow and Doppler transthoracic echocardiogram is performed. Strain analysis performed. Summary 1. Left ventricular systolic function is normal, estimated at 60-65%. 2. There is mildly increased left ventricular wall thickness. 3. The left ventricular diastolic function is grade II diastolic dysfunction. 4. Right atrial chamber dimension is mildly enlarged. 5. Unable to estimate PA systolic pressure due to poor spectral resolution of tricuspid regurgitant jet velocity. 6. There is trace tricuspid valve regurgitation. Left Ventricle Left ventricular chamber dimension is normal. Left ventricular systolic function is normal, estimated at 60-65%. There is mildly increased left ventricular wall thickness. The left ventricular diastolic function is grade II diastolic dysfunction. Global longitudinal strain is mildly elevated at -16 %. Right Ventricle Right ventricular chamber dimension is normal. Right ventricular systolic function is normal. Left Atria Left atrial chamber dimension is normal. Right Atria Right atrial chamber dimension is mildly enlarged. Aortic Valve The aortic valve is probable trileaflet. There is no aortic valve stenosis. There is no aortic valve regurgitation. Pulmonic Valve The pulmonic valve is not well visualized. There is trace pulmonic regurgitation. Mitral Valve The mitral valve has normal leaflets. There is trace mitral valve regurgitation. The mitral valve annulus is mildly calcified. Tricuspid Valve The tricuspid valve leaflets are normal. There is trace tricuspid valve regurgitation. Unable to estimate PA systolic pressure due to poor spectral resolution of tricuspid regurgitant jet velocity. Pericardium/Pleural The pericardium appears epicardial fat pad. There is no pericardial effusion. Inferior Vena Cava Normal inferior vena cava with >50% collapse upon inspiration consistent with normal right atrial pressure, 5 mmHg. Aorta The aortic root size at the sinus of Valsalva is normal. Left Ventricular Outflow Tract Name Value Normal LVOT 2D LVOT Diameter 2.1 cm LVOT Doppler LVOT Peak Gradient 9 mmHg LVOT Mean Gradient 4 mmHg LVOT VTI 25 cm LVOT VTI/AV VTI Ratio 0.7 LVOT Stroke Volume 87 ml LVOT CO 6.7 l/min LVOT CI 2.7 l/min/m2 Mitral Valve
== END 2020-07-09 12:29 | disposition home or self-care (01) ==
LOC: ANHCARD 12:28
PROVIDERS: PCP Internal Medicine; Visit Provider Internal Medicine
DX: R06.02 Shortness of breath (principal); I51.9 Heart disease, unspecified
CPT/HCPCS: 93306

== ENCOUNTER → 2020-08-16 10:05 | Outpatient (CLI) | payer BC, SELFPAY ==
--- NOTE | ~2020-08-16 | XR_ITS ---
EXAMINATION: XR shoulder LT min 2V DATE: 08/16/2020 11:25 INDICATION: Left shoulder pain. TECHNIQUE: 4 views of left shoulder were obtained. COMPARISON: None. FINDINGS: Bone alignment is normal. No fracture. There is mild osteoarthritis of acromioclavicular portia int and glenohumeral joint characterized by tiny marginal osteophytes. IMPRESSION: 1. Mild polyarticular osteoarthritis. Reviewed, dictated and finalized at [facility]. ER/PULLER
== END ==
PROVIDERS: PCP Internal Medicine; Visit Provider Internal Medicine
DX: M19.012 Primary osteoarthritis, left shoulder (principal)
CPT/HCPCS: 73030

== ENCOUNTER 2020-08-20 10:45 | Outpatient (CLI) | payer BC, SELFPAY ==
--- NOTE | 2020-08-26 13:07 | WPDPFTINT ---
PFT Interpretation PFT Interpretation: Full PFTs 08/20/2020 1. Mild obstruction is seen in the mild reduction of flows relative to volumes. 2. Following inhaled bronchodilator, there is modest improvement in flows. 3. Lung volume measurements appears satisfactory. 4. Diffusing capacity appears mildly reduced. In summary, this data suggests mild airway obstruction/COPD with an apparent mild reversible component. Wolf Nazario MD MSc FACP FCCP
== END 2020-08-20 10:46 | disposition home or self-care (01) ==
PROVIDERS: PCP Internal Medicine; Visit Provider Internal Medicine
DX: R06.02 Shortness of breath (principal); J98.4 Other disorders of lung
CPT/HCPCS: 94060; 94726; 94729

== ENCOUNTER 2020-09-12 14:27 | Outpatient (CLI) | payer BC, SELFPAY ==
--- NOTE | ~2020-09-12 | MR_ITS ---
EXAMINATION: MR shoulder LT wo con DATE: 09/12/2020 15:24 INDICATION: Left shoulder pain TECHNIQUE: Magnetic resonance imaging (MRI) of the left shoulder was performed without intravenous co ntrast. Sequences included axial PD-weighted FS FSE, coronal oblique PD-weighted FS FSE, coronal obli que T2-weighted FS FSE, sagittal PD-weighted FS FSE, and sagittal T1-weighted SE. COMPARISON: None. FINDINGS: Coracoacromial arch: The acromion undersurface is curved in morphology (type II). The coracoacromial ligament is normal. M ild acromioclavicular osteoarthritis. Rotator cuff: Moderate supraspinatus tendinopathy. The distal tendon appears attenuated with partial-thickness tear s involving both the bursal and articular surfaces which extends for approximately 12 mm AP along the distal 1.5 cm of the tendon. Together these tears appear to involve up to one half of the tendon thi ckness. On sagittal series 8, image 16 there appears be a tiny communicating full-thickness perforati on. There is mild to moderate infraspinatus tendinopathy without discrete tear. The teres minor tendo n is normal. Mild subscapularis tendinopathy with small longitudinal split tear occurring between the portion of the tendon attached to the lesser tuberosity and the bursal side of the tendon which jah ins contiguous with the transverse humeral ligament. This extends up to 7 mm medial from the medial r im of the intertubercular groove and is filled by the long head biceps tendon which is partially subl uxed across the rim and into the tear defect. Normal rotator cuff muscle bulk and signal. Biceps tendon, glenoid labrum and glenohumeral cartilage: Mild tendinopathy but no discrete tear of the previously noted partially subluxed long head biceps te ndon. There is a tear of the 10:30-11:30 position of the posterior superior glenoid labrum. Partial-t hickness cartilage loss and chondral surface irregularity along the apex of the humeral head. Fluid: Minimal glenohumeral joint effusion. No loose osteochondral bodies. Small amount of fluid and synovit is in the subacromial/subdeltoid bursa consistent with mild to moderate bursitis. There is also mild bicipital tenosynovitis with small amount of fluid and synovitis along the long head biceps tendon sh eath. Bones: Normal marrow signal with no edema, fracture or pathologic marrow replacing process. Irregular cortic al contour consistent mild cystic/erosive change along the superior facet footplate of the greater tu berosity likely related to chronic rotator cuff disease. IMPRESSION: 1. Moderate subscapularis tendinopathy with partial-thickness tears along both the bursal and articul ar surfaces and tiny communicating full-thickness perforation. 2. Mild subscapularis tendinopathy with small longitudinal split tear arising along the medial rim of the intertubercular groove along partial subluxation into the tear defect of the long head biceps te ndon. 3. Mild bicipital tenosynovitis and mild tendinopathy without discrete tear of the subluxed long head biceps tendon. 4. Mild glenohumeral osteoarthritis with tear at the posterior superior glenoid labrum. 5. Mild to moderate subacromial/subdeltoid bursitis. Reviewed, dictated and finalized at location [facility]. INFO CONSULTANT IMPRESSION: 1. Moderate subscapularis tendinopathy with partial-thickness tears along both the bursal and articular surfaces and tiny communicating full-thickness perfora tion. 2. Mild subscapularis tendinopathy with small longitudinal split tear arising a long the medial rim of the intertubercular groove along partial subluxation int o the tear defect of the long head biceps tendon. 3. Mild bicipital tenosynovitis and mild tendinopathy without discrete tear of the subluxed long head bicep
== END 2020-09-12 14:28 | disposition home or self-care (01) ==
PROVIDERS: PCP Internal Medicine; Visit Provider Internal Medicine
DX: M19.012 Primary osteoarthritis, left shoulder (principal); M75.52 Bursitis of left shoulder; M75.22 Bicipital tendinitis, left shoulder
CPT/HCPCS: 73221

== ENCOUNTER → 2021-04-21 08:31 | Outpatient (CLI) | payer BC, SELFPAY ==
--- NOTE | ~2021-04-21 | MR_ITS ---
EXAMINATION: MR pelvis wo con DATE: 04/21/2021 09:41 INDICATION: Sacrococcygeal disorder. Right hip pain. TECHNIQUE: Magnetic resonance imaging (MRI) of the dose was performed without intravenous contrast. S equences included axial T1-weighted FSE, axial T2-weighted FS FSE, coronal T1-weighted FSE, coronal T 2-weighted FS FSE, sagittal T1-weighted FSE and sagittal T2-weighted FS FSE. COMPARISON: Pelvis radiograph dated 04/04/21 FINDINGS: Bone alignment is normal. There is a 2.0 x 1.2 x 1.2 cm region of increased fluid signal intensity bu t with preservation of T1 marrow fat signal at the lateral aspect of the right superior pubic ramus. There is curvilinear region of low signal. Lateral margin of the region of increased signal as well a s central linear low signal. No periostitis or surrounding soft tissue edema. Otherwise normal marrow signal. No other lesions suspicious for fracture. No osteonecrosis or other pathologic marrow replac ing process. Bilateral hip joint spaces appear relatively preserved with physiologic amount of fluid at the bilateral hip joints. Moderate to severe lower lumbar spondylosis. See separate lumbar spine M RI report for further detail. Musculature of the pelvis and visualized proximal thighs is unremarkabl e with normal signal and no asymmetric atrophy. Small right and moderate-sized left fat-containing in guinal hernias. Small left and moderate-sized right hydroceles. Diverticulosis along the sigmoid and visualized descending colon and cecum without surrounding inflammatory stranding to suggest acute div erticulitis. Bladder and prostate are unremarkable. No free fluid in the pelvis. No pathologically en larged pelvic or inguinal lymphadenopathy. IMPRESSION: 1. Small region of increased fluid signal but without loss of T1 hyperintense fat signal at the later al aspect of the right superior pubic ramus and which is without associated periostitis or surroundin g inflammatory edema. Would favor hemangioma over nondisplaced fracture or other neoplasm. Could cons ider CT for assessment of the cortices, trabecular and any internal matrix. 2. Moderate to severe lower lumbar spondylosis. Correlate with separate lumbar spine MR for further d etail. 3. Diverticulosis. 4. Small right and moderate-sized left fat-containing inguinal hernias. 5. Small left and moderate-sized right hydroceles . Reviewed, dictated and finalized at [facility]. IMPRESSION: 1. Small region of increased fluid signal but without loss of T1 hyperintense f at signal at the lateral aspect of the right superior pubic ramus and which is without associated periostitis or surrounding inflammatory edema. Would favor h emangioma over nondisplaced fracture or other neoplasm. Could consider CT for a ssessment of the cortices, trabecular and any internal matrix. 2. Moderate to severe lower lumbar spondylosis. Correlate with separate lumbar spine MR for further detail. 3. Diverticulosis. 4. Small right and moderate-sized left fat-containing inguinal hernias. 5. Small left and moderate-sized right hydroceles .
--- NOTE | ~2021-04-21 | MR_ITS ---
EXAMINATION: MR lumbar spine wo con DATE: 04/21/2021 09:31 INDICATION: Lumbar radiculopathy. TECHNIQUE: Magnetic resonance imaging (MRI) of the lumbar spine was performed without intravenous con trast. Sequences included sagittal T2-weighted FSE, sagittal T2-weighted FS FSE, sagittal T1-weighted FSE, and axial T2-weighted FSE. COMPARISON: None FINDINGS: There is 3 mm retrolisthesis of L2 on L3 and L3 on L4. Vertebral body heights are normal. T here is mildly decreased disc height at L1-L2 and L2-L3, moderately decreased disc height at L3-L4 an d L4-L5, and severely decreased disc height at L5-S1 with endplate remodeling. The distal spinal cord signal intensity is normal. The conus medullaris is at T12-L1. The following disc levels are specifi vanna discussed: L1-L2: The disc is bulging and has an annular fissure. There is moderate bilateral facet joint osteoa rthritis. There is mild bilateral neural foraminal stenosis. There is mild central canal stenosis. L2-L3: The disc is bulging and has an annular fissure. There is moderate bilateral facet joint osteoa rthritis. There is mild bilateral neural foraminal stenosis. There is mild central canal stenosis. L3-L4: The disc is bulging and has an annular fissure. There is severe right and moderate left facet joint osteoarthritis. There is moderate bilateral neural foraminal stenosis. There is mild central ca nal stenosis. L4-L5: The disc is bulging and has an annular fissure. There is severe bilateral facet joint osteoart hritis. There is moderate bilateral neural foraminal stenosis. There is mild central canal stenosis. L5-S1: The disc is bulging and has an annular fissure. There is severe bilateral facet joint osteoart hritis. There is moderate bilateral neural foraminal stenosis. There is mild central canal stenosis. IMPRESSION: 1. Severe lumbar spondylosis. Reviewed, dictated and finalized at location A.
== END ==
PROVIDERS: PCP Internal Medicine; Visit Provider Nurse Practitioner Family
DX: M54.16 Radiculopathy, lumbar region (principal); M53.3 Sacrococcygeal disorders, not elsewhere classified; G89.29 Other chronic pain; M47.816 Spondylosis without myelopathy or radiculopathy, lumbar region; K57.90 Diverticulosis of intestine, part unspecified, without perforation or abscess without bleeding; K40.20 Bilateral inguinal hernia, without obstruction or gangrene, not specified as recurrent; N43.3 Hydrocele, unspecified
CPT/HCPCS: 72148; 72195

== ENCOUNTER → 2021-05-12 09:40 | Outpatient (CLI) | payer BC, SELFPAY ==
--- NOTE | ~2021-05-12 | CT_ITS ---
EXAMINATION: CT pelvis wo con DATE: 05/12/2021 10:03 INDICATION: Sacrococcygeal disorder on prior MRI TECHNIQUE: Computed tomography (CT) of the pelvis was performed without intravenous contrast. Automat ed exposure control and iterative reconstruction technique were employed.The dose-length product was 646.93 mGy-cm. COMPARISON: Pelvis MRI dated 04/21/2021 FINDINGS: Visualized inferior poles of the kidneys, the decompressed bladder, the prostate, appendix and visual ized small bowel are normal. There are multiple diverticula at the distal colon and visualized cecum without adjacent inflammatory change to suggest diverticulitis. No free fluid in the visualized pelvi s. Small right and moderate-sized left fat-containing inguinal hernias. No pathologically enlarged ab dominal, pelvic or inguinal lymphadenopathy. Severe lower lumbar spondylosis. See separate lumbar spi ne MRI report for further detail. There is a thickened linear internal trabecula extending through th e region of the T2 hyperintense lesion on prior MRI. No aggressive features with no evident endosteal scalloping or periosteal reaction. There is near fluid attenuation with no evident soft tissue densi ty marrow replacing process. IMPRESSION: 1. No concerning endosteal scalloping, periosteal reaction or soft tissue density marrow replacing pr ocesses at the lesion of concern along the right superior pubic ramus most likely representing either a hemangioma or less likely focal marrow edema such as in the setting of stress reaction. 2. Small right and moderate-sized left fat-containing inguinal hernias. 3. On review of prior imaging there is mild right ischial bursitis with moderate tendinopathy without discrete tear of the proximal right semimembranosus tendon which might account for prior history of right hip pain. Reviewed, dictated and finalized at location A. IMPRESSION: 1. No concerning endosteal scalloping, periosteal reaction or soft tissue densi ty marrow replacing processes at the lesion of concern along the right superior pubic ramus most likely representing either a hemangioma or less likely focal marrow edema such as in the setting of stress reaction. 2. Small right and moderate-sized left fat-containing inguinal hernias. 3. On review of prior imaging there is mild right ischial bursitis with moderat e tendinopathy without discrete tear of the proximal right semimembranosus tend on which might account for prior history of right hip pain.
== END ==
PROVIDERS: PCP Orthopaedic Surgery; Visit Provider Nurse Practitioner Family
DX: M25.551 Pain in right hip (principal); K40.20 Bilateral inguinal hernia, without obstruction or gangrene, not specified as recurrent
CPT/HCPCS: 72192

== ENCOUNTER 2022-12-02 08:04 | Outpatient (CLI) | payer BC, SELFPAY ==
--- NOTE | ~2022-12-02 | XR_ITS ---
EXAMINATION: XR chest 2V DATE: 12/02/2022 08:50 INDICATION: Shortness of breath TECHNIQUE: PA and lateral views of the chest are obtained. COMPARISON: None available FINDINGS: The lungs are free of acute opacities. No pleural effusion or pneumothorax. The cardiomedia stinal silhouette is normal. There is moderate thoracic spondylosis. IMPRESSION: 1. No acute cardiopulmonary abnormality. Reviewed, dictated and finalized at location B.
--- NOTE | 2022-12-02 11:50 | WPDPFTINT ---
PFT Procedure Performed PFT Procedure Performed Plethysmography (Lung Vol) Diffusing Cap (DLCO) Flow Vol Loop Spirometry w/o Bronchodil PFT Interpretation This is a pulmonary function test with spirometry, plethysmography and diffusing capacity. The test was performed and results interpreted in accordance with the 2019 and 2005 ATS/ERS Task Force guidelines respectively using the Global Lung Function Initiative-2012 reference equations. Patient demonstrated good effort and cooperation. Reproducibility criteria were met. The quality of the spirometry maneuver was Grade B. Findings: Spirometry: The contour the inspiratory and expiratory flow tracing are normal. The FVC is 3.45 L, 72% predicted. The FEV1 is 2.52 L, 68% predicted. The FEV1: FVC ratio 73%. Plethysmography: The total lung capacity is 5.54 L, 77% predicted. The functional residual capacity is 2.48 L, 66% predicted. The residual volume is 2.06 L, 90% predicted. Diffusing capacity: The diffusing capacity unadjusted for hemoglobin and carboxyhemoglobin is 19.3, 67% predicted. The diffusing capacity adjusted for alveolar volume is 4.00, 96% predicted. Impression: There is a moderate restrictive ventilatory abnormality. The spirometry is normal without evidence of an obstructive abnormality. The diffusing capacity unadjusted for hemoglobin and carboxyhemoglobin is mildly decreased and normalizes when adjusted for alveolar volume. There are no prior studies for comparison
== END 2022-12-02 08:05 | disposition home or self-care (01) ==
LOC: ANHPFT 08:06
PROVIDERS: PCP Internal Medicine; Visit Provider Internal Medicine
DX: R06.09 Other forms of dyspnea (principal); R94.2 Abnormal results of pulmonary function studies
CPT/HCPCS: 71046; 94375; 94726; 94729

== ENCOUNTER 2023-01-20 09:59 | Outpatient (CLI) | payer BC, SELFPAY ==
--- NOTE | ~2023-01-20 | CT_ITS ---
EXAMINATION: CT lung screening DATE: 01/20/2023 10:16 INDICATION: Personal history of nicotine dependence TECHNIQUE: Computed tomography (CT) of the chest was performed without intravenous contrast. The dose -length product was 537.80 mGy-cm. Automated exposure control and iterative reconstruction technique were employed. COMPARISON: CT dated 06/26/2020 FINDINGS: There are scattered small calcified granulomas of the lungs. Mild emphysema. No noncalcifie d pulmonary nodules are seen. No pneumothorax. No endobronchial lesions. There are are calcified medi astinal lymph nodes, consistent with chronic granulomatous disease. No significant pleural or pericar dial effusion. Moderate thoracic spondylosis. IMPRESSION: 1:Lung-RADS category 1: Negative. Continue annual screening with noncontrast low-dose chest CT in 12 months. Reviewed, dictated and finalized at location B. IMPRESSION: 1:Lung-RADS category 1: Negative. Continue annual screening with noncontrast lo w-dose chest CT in 12 months.
== END 2023-01-20 10:00 | disposition home or self-care (01) ==
LOC: ANHIMG 10:01
PROVIDERS: PCP Family Medicine; Visit Provider Family Medicine
DX: Z12.2 Encounter for screening for malignant neoplasm of respiratory organs (principal); F17.210 Nicotine dependence, cigarettes, uncomplicated
CPT/HCPCS: 71271

== ENCOUNTER 2023-05-27 09:48 | Outpatient (CLI) | payer BC, SELFPAY ==
--- NOTE | 2023-05-27 | EST_ITS ---
Patient Info Name: Miguel Coyle Age: 63 years : 1960 Gender: Male Ht: 71 in Wt: 270 lbs BSA: 2.52 m2 HR: 79 bpm BP: 118 / 81 mmHg Heart Rhythm: Sinus Rhythm Exam Date: 05/27/2023 10:56 AM Exam Location: [facility] Patient Status: Outpatient Admit Date: 05/27/2023 Staff Ordering Physician: Thania Castro APRN Potato Loader: Catie Santacruz RDCS Attending Provider: DAREN GARCIA Exercise Technologist: Catie Santacruz RDCS Exercise Physician: Daren Garcia DO Exam Type: CA stress echo Study Info Indications R55 - Syncope and collapse I10 - Essential (primary) hypertension R06.02 - Shortness of breath Treadmill exercise stress echocardiogram is performed. Summary 1. 1. Negative Enzo exercise stress test for ischemic ST changes by ECG criteria. However, patient achieved only 72% MPHR for age group which reduces sensitivity of the test. 2. 2. Poor functional capacity, achieving 2.8 METs of workload. 3. 3. Appropriate HR response to exercise. 4. 4. Appropriate HR recovery at 1 minute post exercise. 5. 5. Negative stress echocardiogram for ischemia by wall motion analysis. 6. 6. Patient informed of the above results. Stress Echo Findings Left Ventricle Appropriate increase in LV endocardial thickening with systole. Appropriate augmentation of contractility with systole. No wall motion abnormality. Left Ventricle Normal LV systolic function, no wall motion abnormality. Protocol: Enzo Stress ECG Details Stage: REST Duration (min): 1 min : 4 sec Speed (mph): 0.0 Grade (%): 0 HR (bpm): 75 SBP (mmHg): 118 DBP (mmHg): 81 METS: --- Stage: REST Duration (min): 10 min : 9 sec Speed (mph): 0.0 Grade (%): 0 HR (bpm): 74 SBP (mmHg): 118 DBP (mmHg): 81 METS: --- Stage: STAGE 1 Duration (min): 1 min : 0 sec Speed (mph): 1.7 Grade (%): 10 HR (bpm): 109 SBP (mmHg): 118 DBP (mmHg): 81 METS: --- Stage: STAGE 1 Duration (min): 1 min : 19 sec Speed (mph): 0.0 Grade (%): 0 HR (bpm): 114 SBP (mmHg): 118 DBP (mmHg): 81 METS: --- Stage: RECOVERY Duration (min): 0 min : 40 sec Speed (mph): 0.0 Grade (%): 0 HR (bpm): 92 SBP (mmHg): 118 DBP (mmHg): 81 METS: --- Stage: RECOVERY Duration (min): 1 min : 40 sec Speed (mph): 0.0 Grade (%): 0 HR (bpm): 80 SBP (mmHg): 129 DBP (mmHg): 71 METS: --- Stage: RECOVERY Duration (min): 2 min : 40 sec Speed (mph): 0.0 Grade (%): 0 HR (bpm): 73 SBP (mmHg): 122 DBP (mmHg): 70 METS: --- Stage: RECOVERY Duration (min): 2 min : 54 sec Speed (mph): 0.0 Grade (%): 0 HR (bpm): 74 SBP (mmHg): 122 DBP (mmHg): 70 METS: --- Rest HR: 74 bpm Peak HR: 116 bpm Rest Sys BP: 118 mmHg Peak Sys BP: 129 mmHg Max Pred HR: 159 bpm % Max Pred HR: 73 % Target HR: 135 bpm Max RPP: 14,964 bpm*mmHg Will Score: -5 Termination Reason: Maximal effort/unable to continue Cardiac Symptoms: Shortness of breath Max ST Seg Deviation: 1.20 mm Total Time: 1 min : 19 sec Rest Coon BP: 81 mmHg Peak Coon BP: 71 mmHg Angina Score: None Total METS: 2.8 Resting ECG
== END 2023-05-27 09:49 | disposition home or self-care (01) ==
LOC: ANHCARD 09:48
PROVIDERS: PCP Family Medicine; Visit Provider Nurse Practitioner Family
DX: R55 Syncope and collapse (principal); I10 Essential (primary) hypertension; R06.02 Shortness of breath
CPT/HCPCS: 93351

== ENCOUNTER 2023-07-27 12:22 | Outpatient (CLI) | payer BC, SELFPAY ==
--- NOTE | 2023-07-27 12:39 | ECHO_ITS ---
Patient Info Name: Miguel Coyle Age: 63 years : 1960 Gender: Male Ht: 73 in Wt: 275 lbs BSA: 2.58 m2 HR: 104 bpm BP: 132 / 105 mmHg Heart Rhythm: Sinus Rhythm Technical Quality: Good Exam Date: 07/27/2023 12:44 PM Exam Location: Echo [facility] Patient Status: Outpatient Admit Date: 07/27/2023 Staff Ordering Physician: Daren Amador DO Financial Assistance Specialist: Khadijah Woods RDCS Attending Provider: Daren Amador DO Referring Physician: Perry SOLANO; Exam Type: CA echo doppler color flow Study Info Indications - other forms of dyspnea Complete two-dimensional, color flow and Doppler transthoracic echocardiogram is performed. Summary 1. Complete two-dimensional, color flow and Doppler transthoracic echocardiogram is performed. 2. Left ventricular chamber dimension is normal. 3. Left ventricular systolic function is normal, estimated at 60-65%. 4. There is mild concentric increased left ventricular wall thickness. 5. The left ventricular diastolic function is grade I diastolic dysfunction. 6. E/e' 6 is not elevated. 7. There is moderate aortic valve sclerosis. 8. No pulmonary hypertension, estimated pulmonary arterial systolic pressure is 13 mmHg. Left Ventricle E/e' 6 is not elevated. Left ventricular chamber dimension is normal. Left ventricular systolic function is normal, estimated at 60-65%. There is mild concentric increased left ventricular wall thickness. The left ventricular diastolic function is grade I diastolic dysfunction. Right Ventricle Right ventricular systolic function is normal and with normal TAPSE 2.4 cm. Right ventricular chamber dimension is normal. Left Atria Left atrial chamber dimension is normal. Right Atria Right atrial chamber dimension is normal. Aortic Valve The aortic valve is not well visualized. There is moderate aortic valve sclerosis. There is no aortic valve stenosis. There is no aortic valve regurgitation. Pulmonic Valve There is no pulmonic regurgitation. Mitral Valve There is no mitral valve stenosis. There is no mitral valve regurgitation. Tricuspid Valve There is no tricuspid valve regurgitation. No pulmonary hypertension, estimated pulmonary arterial systolic pressure is 13 mmHg. Pericardium/Pleural There is no pericardial effusion. Inferior Vena Cava Normal inferior vena cava with >50% collapse upon inspiration consistent with normal right atrial pressure, 5 mmHg. Aorta The aortic root size at the sinus of Valsalva is normal. Left Ventricular Outflow Tract Name Value Normal LVOT 2D LVOT Diameter 2.1 cm LVOT Doppler LVOT Peak Gradient 5 mmHg LVOT Mean Gradient 4 mmHg LVOT VTI 25 cm LVOT VTI/AV VTI Ratio 1.0 LVOT Stroke Volume 91 ml LVOT CO 6.5 l/min LVOT CI 2.5 l/min/m2 Pulmonic Valve Name Value Normal RVOT Doppler
== END 2023-07-27 12:23 | disposition home or self-care (01) ==
LOC: ANHCARD 12:22
PROVIDERS: Visit Provider Internal Medicine Cardiovascular Disease
DX: R06.09 Other forms of dyspnea (principal); I70.0 Atherosclerosis of aorta
CPT/HCPCS: 93306

== ENCOUNTER 2023-08-13 00:39 | Day surgery (SDC) | payer BC, SELFPAY ==
[2023-07-28 14:04] VITALS: BMI 39.5
--- NOTE | 2023-08-11 10:16 | SUR.PREOP ---
Patient called regarding upcoming procedure. Reviewed preop instructions, appointment times, and procedure prep.
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
[2023-08-13 08:12] VITALS: BP 144/90; PULSE 90; RESP 18; TEMP 36.1; O2SAT 94
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
[2023-08-13] MEDS: LACTATED RINGERS 1,000 ML 150 ML IV CONT (08:24)
[2023-08-13 09:19] VITALS: BP 114/90; PULSE 80; RESP 19; O2SAT 97
[2023-08-13 09:29] VITALS: BP 131/85; PULSE 73; RESP 17; O2SAT 95
[2023-08-13 09:39] VITALS: BP 137/104; PULSE 75; RESP 23; O2SAT 96
== END 2023-08-13 09:51 | disposition home or self-care (01) ==
PROVIDERS: PCP Family Medicine; Visit Provider Internal Medicine Gastroenterology
PROC: 0DJD8ZZ Inspection of Lower Intestinal Tract, Via Natural or Artificial Opening Endoscopic (ICD-10-PCS; CPT 45378; principal; 2023-08-13 09:00)
DX: Z12.11 Encounter for screening for malignant neoplasm of colon (principal); K57.30 Diverticulosis of large intestine without perforation or abscess without bleeding; Z86.010 Personal history of colon polyps; I10 Essential (primary) hypertension; E78.5 Hyperlipidemia, unspecified; G47.33 Obstructive sleep apnea (adult) (pediatric); F17.210 Nicotine dependence, cigarettes, uncomplicated
CPT/HCPCS: 45378; J2704; J7120

== ENCOUNTER 2025-07-03 08:09 | Outpatient (CLI) | payer MEDICARE, SELFPAY ==
--- OUTSIDE RECORDS SUMMARY | 2025-07-03 08:17 | XMS_ITS | Clinical Summary ---
Author Organization [facility] Address [address], [address] [address] Phone Care Team Providers Care Generator Operator Straight Bevel Gear Name Role Phone Jairo Blankenship MD Primary Care Provider [phone] Miguel Emerson DO Unavailable [phone] Allergies No known active allergies Medications amLODIPine-aleksandra zepril (LOTREL) 2.5-10 MG Capsule Take 1 Cap by mouth daily. Active diclofenac (VOLTAREN) 75 MG Tablet Delayed Response Take 75 mg by mouth 2 times daily. Active Phentermine HCl 37.5 MG Tablet Take 37.5 mg by mouth every morning (before breakfast). Active pravastatin (PRAVACHOL) 40 MG Tablet Take 40 mg by mouth daily. Active Family History Medical History Relation Name Comments Heart Disease Father Lung Cancer Mother Relation Name Status Comments Father Mother Social History Tobacco Use Types Packs/Day Years Used Date Smoking Tobacco: Every Day Cigarettes 0.5 30 Alcohol Use Standard Drinks/Week Comments Yes 6 (1 standard drink = 0.6 oz pur e alcohol) Sex and Gender Information Value Date Recorded Sex Assigned at Not on file Legal Sex Male 9:19 AM CDT Gender Identity Not on file Sexual Orientation Not on file Plan of Treatment Health Maintenance Due Date Last Done Comments Hepatitis C Virus (HCV) Screening 1960 TdaP Immunization 1960 Cologuard 2007 Immunochemical Fecal Occult Blood 2007 Pneumococcal Immunization (5 0+ years) (1 of 1 - PCV) 2012 Zoster Immunization (1 of 2) 2012 Influenza Immunization (#1) 2025 SARS-COV-2 Immunization ( season) 2025 Colonoscopy 04/22/2026 04/22/2016 Colorectal Cancer Screening 04/22/2026 Respiratory Syncytial Virus (RSV) Immunization (Adult) (1 - 1-dose 75+ series) 2037 Hepatitis B Immunization Aged Out No longer eligible based on patient's age to complete this topic Human Papillomavirus (HPV) Immunization Aged Out No longer eligible b ased on patient's age to complete this topic Meningococcal Immunization (ACWY) Aged Out No longer eligible based on patient's age to complete this topic Rotavirus Immunization Aged Out No lo nger eligible based on patient's age to complete this topic Procedures Procedure Name Priority Date/Time Associated Diagnosis Comments COLONOSCOPY Routine 04/22/2016 from Last 3 Months or Most Recently Relevant to Health Maintenance Results * COLONOSCOPY (04/22/2016) Jairo Blankenship MD PROCEDURE/MINOR SURGICAL ORDER GARCIA Final Result from Last 3 Months or Most Recently Relevant to Health Maintenance Insurance Care Teams Generator Operator Straight Bevel Gear Relationship Specialty Start Date End Date Jairo Blankenship MD PCP - General Internal Medicine 04/22/16 Miguel Emerson DO Consulting Physician Gastroenterology 04/22/16
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
[2025-07-30 10:38] VITALS: BMI 47.0
[2025-08-06 12:18] VITALS: BMI 47.0
== END 2025-07-04 06:58 | disposition home or self-care (01) ==
PROVIDERS: PCP Family Medicine; Visit Provider Family Medicine
DX: G47.33 Obstructive sleep apnea (adult) (pediatric) (principal)
CPT/HCPCS: 95810